=== PATIENT | male | born 1980 | race Caucasian/White ===

== ENCOUNTER 2017-05-17 17:54 | Emergency (ER) | payer SELFPAY ==
[~2017-05-17] VITALS: Ht 188 cm; Wt 156.4 kg
[~2017-05-17 17:54] MED LIST: BACTRIM,SEPT1 TABLET PO; HYDROCODON-ACE1 EAC7 PO; KEFLEX500 MG PO; PERCOCET 5/31 TABLET PO; SILVADENE20 GM TP
[2017-05-17] MEDS ORDERED: NAPROSYN500 MG PO (18:33)
[2017-05-17 18:48] VITALS: BP 144/87
== END 2017-05-17 18:49 | disposition home or self-care (01) ==
LOC: EME 17:54
DX: S90.01XA Contusion of right ankle, initial encounter (principal)
CPT/HCPCS: 73590; 99281; 99284